=== PATIENT | male | born 1965 | race Caucasian/White ===

== ENCOUNTER 2019-04-17 16:53 | Emergency (ER) | payer OTHER ==
[2019-04-17] MEDS ORDERED: Morphine 4 MG/ML VIAL ONE ×2 (17:27→18:18)
[2019-04-17] MEDS ORDERED: Ondansetron PF 4 MG/2 ML Vial ONE (17:27)
[2019-04-17 17:59] LABS: #Lymphocytes 1.2 thou/uL (1.20-3.40); #Monocytes 0.4 thou/uL (0.11-0.59); #Neutrophils 11.4 thou/uL (1.40-6.50); %Basophils 0.3 % (0.0-1.0); %Lymphocytes 9.2 % (21.0-51.0); %Monocytes 3.3 % (0.0-10.0); %Neutrophils 87.2 % (42.0-75.0); Hemoglobin 14.1 g/dL (14.0-18.0); Mean Corpuscular Hemoglobin 31.7 pg (27.0-31.0); Mean Corpuscular Volume 93.5 fL (78.0-98.0); Mean Platelet Volume 7.1 fL (7.4-10.4); Platelet Count 270 thou/uL (130-400); RBC Distribution Width 12.3 % (11.5-14.5); Red Blood Cell (RBC) Count 4.45 mill/uL (4.70-6.10); White Blood Cell (WBC) Count 13.1 thou/uL (4.8-10.8)
[2019-04-17 18:06] LABS: ALT (SGPT) 35 U/L (8-55); AST (SGOT) 22 U/L (5-34); Albumin 4.5 g/dL (3.5-5.0); Alkaline Phosphatase 72 U/L (40-150); Anion Gap 16 mmol/L (10-20); BUN (Urea Nitrogen) 16 mg/dL (8.4-25.7); Bilirubin, Total 1.6 mg/dL (0.2-1.2); Calc. Creatinine Clearance 0 mL/min (70-130); Calcium 9.4 mg/dL (7.8-10.44); Carbon Dioxide 25 mmol/L (22-29); Estimated GFR-MDRD 41; Globulin 3.2 g/dL (2.4-3.5); Glucose 115 mg/dL (70-105); Protein, Total 7.7 g/dL (6.0-8.3)
[2019-04-17 18:10] LABS: Chloride 103 mmol/L (98-107); Potassium 4.2 mmol/L (3.5-5.1); Sodium 140 mmol/L (136-145)
--- NOTE | 2019-04-17 18:12 | CT ---
CT Stone Protocol: 04/17/2019 5:22 PM HISTORY: Right lower quadrant abdominal pain. History of kidney stones. COMPARISON: None. Procedure: Multiple contiguous axial images were obtained and a CT of the abdomen and pelvis without IV contrast . Coronal reformats were performed. FINDINGS: This examination is limited for the evaluation of solid organs and vascular structures due to the lac k of intravenous contrast. Lower Chest: Small hiatal hernia. Otherwise within normal limits. Abdomen: Liver: within normal limits. Bile Ducts: Normal caliber. Gallbladder: No calcified gallstones. Normal caliber wall. Pancreas: within normal limits. Spleen: within normal limits. Adrenals: within normal limits. Kidneys: Multiple bilateral nonobstructing renal calculi. The largest is seen on the right measuring 10 mm in size. The calcifications in the right kidney may be coalescing and developing into a staghorn calculus. No hydronephrosis on either side. Pelvis: Reproductive Organs: No pelvic masses. Ureters: There is a 3 mm calcification in the proximal right ureter with mild enlargement of the righ t ureter. A second 6 mm calcification is seen in the more proximal right ureter which is nonobstructing. Bladder: within normal limits. Bowel: Normal caliber. Normal appendix. Scattered diverticula in the colon. Mesenteric Lymph Nodes: No enlarged mesenteric lymph nodes. Peritoneum: No ascites or free air, no fluid collection. Vessels: Normal caliber aorta Retroperitoneum: within normal limits. Abdominal Wall: within normal limits. Bones: Degenerative changes in the spine. IMPRESSION: 1. Right ureteral calculi with mild hydroureter. No significant right hydronephrosis is seen. 2. Bilateral nonobstructing renal calculi. 3. Diverticulosis
[2019-04-17] MEDS ORDERED: Ketorolac Tromethamine 30 MG/ML VIAL ONE (18:18)
[2019-04-17 18:50] LABS: Bilirubin Negative (Negative); Blood, Urine Trace (Negative); Glucose, Urine (Dipstick) Negative (Negative); Leukocyte Negative (Negative); Nitrite Negative (Negative); Protein, Urine (Dipstick) Trace mg/dL (Neg-Trace); Urobilinogen 0.2 mg/dL (0.2-1.0)
[2019-04-17 18:56] LABS: Bacteria/HPF Rare-Few HPF (None Seen); Clarity Hazy (Clear); RBC/HPF 0-3 HPF (0-3); Squamous Epithelial None Seen HPF (0-3); WBC/HPF None Seen HPF (0-3)
[2019-04-17] MEDS ORDERED: HYDROcodone/Acetaminophen 10/325 mg Tablet ONE (19:11)
== END 2019-04-17 20:36 | disposition home or self-care (01) ==
LOC: SCSER 16:53
DX: N20.2 Calculus of kidney with calculus of ureter (principal); K21.9 Gastro-esophageal reflux disease without esophagitis
CPT/HCPCS: 36415; 74176; 80053; 81003; 81015; 85025; 96361; 96374; 96375; 96376; J1885; J2270; J2405

== ENCOUNTER 2019-05-05 09:21 | Outpatient (CLI) | payer OTHER ==
[2019-05-05 12:14] LABS: Hemoglobin 13.8 g/dL (14.0-18.0); Mean Corpuscular Hemoglobin 30.1 pg (27.0-31.0); Mean Corpuscular Volume 97.2 fL (78.0-98.0); Mean Platelet Volume 7.9 fL (7.4-10.4); Platelet Count 323 thou/uL (130-400); RBC Distribution Width 12.2 % (11.5-14.5); Red Blood Cell (RBC) Count 4.57 mill/uL (4.70-6.10)
[2019-05-05 12:20] LABS: PTT 26.6 SEC (22.9-36.1)
[2019-05-05 12:31] LABS: Bacteria/HPF None Seen HPF (None Seen); Bilirubin Negative (Negative); Blood, Urine Negative (Negative); Clarity Clear (Clear); Glucose, Urine (Dipstick) Normal (Negative); Leukocyte Negative Leu/uL (Negative); Nitrite Negative (Negative); Protein, Urine (Dipstick) Negative (Neg-Trace); RBC/HPF 0-3 HPF (0-3); Squamous Epithelial 0-3 HPF (0-3); Urobilinogen Normal mg/dL (Less than 2); WBC/HPF 0-3 HPF (0-3)
[2019-05-05 12:32] LABS: Anion Gap 13 mmol/L (10-20); BUN (Urea Nitrogen) 23 mg/dL (8.4-25.7); Calc. Creatinine Clearance 0 mL/min (70-130); Calcium 10.1 mg/dL (7.8-10.44); Carbon Dioxide 25 mmol/L (22-29); Chloride 106 mmol/L (98-107); Estimated GFR-MDRD 36; Glucose 90 mg/dL (70-105); Potassium 4.9 mmol/L (3.5-5.1); Sodium 139 mmol/L (136-145)
--- NOTE | 2019-05-05 17:22 | EKG ---
Test Reason : Blood Pressure : / mmHG Vent. Rate : 062 BPM Atrial Rate : 062 BPM P-R Int : 156 ms QRS Dur : 086 ms QT Int : 406 ms P-R-T Axes : 040 049 030 degrees QTc Int : 412 ms Normal sinus rhythm Normal ECG No previous ECGs available Confirmed by DR. Bertha MENDOZA ([id number]) on 05/05/2019 5:21:55 PM Referred By: LESTER Confirmed By:DR. Bertha MENDOZA
== END 2019-05-05 09:22 | disposition home or self-care (01) ==
LOC: LABBT 09:21
PROVIDERS: ATTEND Urology
DX: Z01.818 Encounter for other preprocedural examination (principal); N20.1 Calculus of ureter
CPT/HCPCS: 80048; 81001; 85027; 85610; 85730; 87086; 93005; 93010

== ENCOUNTER 2019-05-12 10:13 | Day surgery (SDC) | payer OTHER ==
[2019-05-05 11:05] VITALS: BMI 26.5
[2019-05-12] MEDS ORDERED: Fentanyl 100 MCG/2 ML VIAL ONE ×2 (11:11→13:43)
[2019-05-12] MEDS ORDERED: Levofloxacin 500 mg/D5W 100 ml Premix Bag ONE (11:18)
[2019-05-12] MEDS ORDERED: Lidocaine 2% Jelly 5 ML TUBE ONE (11:24)
[2019-05-12] MEDS ORDERED: Promethazine HCl 25 MG/ML VIAL ONE (13:10)
[2019-05-12] MEDS ORDERED: B & O ONE (13:15)
[2019-05-12] MEDS ORDERED: Meperidine HCl/PF 25 MG/ML VIAL ONE (13:24)
[2019-05-12] MEDS ORDERED: PROPOFOL 200 MG/20 ML VIAL ONE (13:50)
[2019-05-12] MEDS ORDERED: Lidocaine 1% PF 5 ML VIAL ONE (13:50)
[2019-05-12] MEDS ORDERED: Dexamethasone 20 MG/5 ML VIAL ONE (13:50)
[2019-05-12] MEDS ORDERED: Glycopyrrolate 0.2 MG/ML 5 ML SYRINGE ONE (13:50)
[2019-05-12] MEDS ORDERED: Rocuronium Bromide 10 MG/ML (10ML VIAL) ONE (13:50)
[2019-05-12] MEDS ORDERED: Ondansetron PF 4 MG/2 ML Vial ONE (13:50)
--- NOTE | 2019-05-12 16:25 | OP ---
DATE OF PROCEDURE: 05/12/2019 SERVICE: Urology. PREOPERATIVE DIAGNOSIS: Bilateral nephrolithiasis. POSTOPERATIVE DIAGNOSES: Bilateral nephrolithiasis and right ureteral stone. PROCEDURES PERFORMED: Right ureteroscopy, laser lithotripsy, basket extraction of stone, and placement of a 6 x 26 double-J stent. INDICATIONS FOR PROCEDURE: Mr. Victoria is a 53-year-old white male, who initially presented with right flank pain. He had mild renal insufficiency. He had 2 ureteral stones on the right with a 1 cm renal stone. He also has stones on the left. We had elected to treat the right side first since he has obstructing stones on the side. He thinks he may have passed one of the stones, but at the current time still has additional stones. Risks and benefits of ureteroscopy have been discussed, and he has agreed to proceed forward. DESCRIPTION OF PROCEDURE: After identification of armband and verification of consent, the patient was brought back to the operating room, where he underwent anesthesia with an endotracheal intubation. He was then placed in dorsal lithotomy position, and prepped and draped in usual sterile fashion. After appropriate time-out, a lubricated 22-Tristanian rigid cystoscope was introduced per urethra into the bladder. There was a very mild bulbar urethral stricture, which was navigated past. The prostate was not very obstructive. The right ureteral orifice was cannulated with a 0.035 Sensor wire up to the level of renal pelvis. The cystoscope was then removed, and a dual-lumen catheter was advanced over the Sensor wire up to the level of the stone in the ureter. An Amplatz Super Stiff wire was then placed through the second lumen of the dual-lumen catheter up to the level of renal pelvis. The dual-lumen was then removed. The sensor wire was then affixed to the drapes as a safety wire. An 11/13 x 46 cm ureteral access sheath was advanced up the right ureter to the level of the stone. The inner cannula and the Super Stiff wire were then removed, leaving the outer sheath in place. A flexible digital disposable ureteroscope was then passed up the ureteral access sheath to the level of the stone. Using a 273 micron ball-tip laser fiber, the stone was fragmented and the pieces removed using 1.9-Tristanian ZeroTip Nitinol basket. The inner cannula and Super Stiff wire were then placed back into the sheath and attempts to advance in forward were unsuccessful, therefore we opted to leave the sheath where it was. The ureteroscope was then passed up into the kidney, where the large upper pole renal calculus was seen. Actually, it was one solid stone rather than 2 separate stones, which was initially thought on CT scan. The stone was fragmented using the 273 ball-tip laser fiber and the dusting setting to completely fragment the stone. There were several large pieces at the end, which were basketed out using the same 1.9-Tristanian ZeroTip Nitinol basket. After extraction of all stone fragments, the only pieces left were 1 mm and submillimeter fragments. Satisfied that these should pass on their own. A full pyeloscopy was performed of all calyces, and no additional large stone fragments were identified. Pull-back ureteroscopy was employed. No additional stones were found in the ureter. There was a significant amount of edema and irritation at the site of stone impaction; therefore, I did elect to leave a stent. The cystoscope was backloaded over the Sensor wire back into the bladder, and a 6 x 26 double-J stent with no string attached was advanced up the Sensor wire up to the level of renal pelvis. The wire was then removed leaving a good curl in the kidney and a good curl in the bladder. The bladder was then emptied, and the cystoscope was removed. The patient was then awakened, taken to PACU for recovery in stable condition. COMPLICATIONS: None. ESTIMATED BLOOD LOSS: Minimal. RETAINED TUBES AND DRAINS: A 6 x 26 double-J stent on the right. SPECIMEN: Stone for stone analysis. DISPOSITION: The patient will be discharged home and follow up with me in approximately a week for cystoscopy and stent removal. Job ID: [id number]
[2019-05-17 09:10] LABS: CA Oxalate Monohydrate 85 % (.); CA Phosphate 15 % (.); Color Brown (.); Stone Weight 271.7 mg (.)
== END 2019-05-12 17:17 | disposition home or self-care (01) ==
LOC: SDC 10:13
PROVIDERS: ATTEND Urology
PROC: 0T768DZ Dilation of Right Ureter with Intraluminal Device, Via Natural or Artificial Opening Endoscopic (ICD-10-PCS; principal; 2019-05-12)
PROC: 0TF38ZZ Fragmentation in Right Kidney Pelvis, Via Natural or Artificial Opening Endoscopic (ICD-10-PCS; principal; 2019-05-12)
DX: N20.2 Calculus of kidney with calculus of ureter (principal); Z79.891 Long term (current) use of opiate analgesic; Z79.899 Other long term (current) drug therapy; Z88.0 Allergy status to penicillin
CPT/HCPCS: 74420; 82365; 88300; C1758; C1769; J1100; J1956; J2001; J2175; J2405; J2550; J2704; J3010

== ENCOUNTER 2019-07-12 12:07 | Outpatient (CLI) | payer OTHER ==
--- NOTE | 2019-07-12 13:05 | ULT ---
RENAL ULTRASOUND: DATE: 07/12/2019. COMPARISON: None. HISTORY: History of nephrolithiasis. TECHNIQUE: Multiplanar grayscale sonographic imaging of the kidneys and urinary bladder obtained. FINDINGS: The right kidney measures 10 cm in craniocaudal dimension and demonstrates a cortical thick ness of 1.4 cm. Left kidney measures 10.5 cm in craniocaudal dimension and demonstrates a cortical thickness of 1.5 c m. No hydronephrosis or solid renal mass lesion noted on either side. Three echogenic foci are noted within the left kidney suggesting left-sided renal stone disease, lynen uring up to 6 mm. The degree of renal stone disease on the left may be underestimated via ultrasound. Of note, there was a prominent stone within the right kidney on prior CT performed 04/17/2019. No stone is seen on this examination. This could be secondary to technical limitation or interval surgical removal. IMPRESSION: No discrete stone seen on the right. Findings suggest multiple subcentimeter intrarenal calculi on th e left. No hydronephrosis on either side. Transcribed Date/Time: 07/12/2019 1:10 PM
== END 2019-07-12 12:08 | disposition home or self-care (01) ==
LOC: BICULT 12:07
PROVIDERS: ATTEND Urology
DX: N20.0 Calculus of kidney (principal)
CPT/HCPCS: 76770

== ENCOUNTER 2019-08-21 13:50 | Outpatient (CLI) | payer OTHER ==
--- NOTE | 2019-08-21 14:26 | RAD ---
EXAM: XR Abdomen 1 View/KUB PROVIDED CLINICAL HISTORY: Nephrolithiasis. COMPARISON: CT abdomen on 04/17/2019. FINDINGS: Renal shadows are mostly obscured due to overlying bowel gas. There does appear to be a calcification overlying the midportion left renal shadow likely related to a calculus. The large calcifications overlying the midportion and superior pole right kidney on prior CT exam are not definitely delineate d on this study. Phleboliths overlie the pelvis. Bowel gas pattern is nonspecific. Osseous structures have a normal appearance. IMPRESSION: 1. Left nephrolithiasis. 2. Previously seen right renal calculi are not visualized on this exam.
== END 2019-08-21 13:51 | disposition home or self-care (01) ==
LOC: BICRAD 13:50
PROVIDERS: ATTEND Urology
DX: N20.0 Calculus of kidney (principal)
CPT/HCPCS: 74018

== ENCOUNTER 2019-08-30 17:01 | Outpatient (CLI) | payer OTHER ==
[2019-08-30 18:04] LABS: Bacteria/HPF None Seen HPF (None Seen); Bilirubin Negative (Negative); Blood, Urine Negative (Negative); Clarity Clear (Clear); Glucose, Urine (Dipstick) Normal (Negative); Hemoglobin 14.1 g/dL (14.0-18.0); Leukocyte Negative Leu/uL (Negative); Mean Corpuscular HGB CONC 32.4 g/dL (32.0-36.0); Mean Corpuscular Hemoglobin 31.5 pg (27.0-31.0); Mean Corpuscular Volume 97.2 fL (78.0-98.0); Mean Platelet Volume 8.3 fL (7.4-10.4); Nitrite Negative (Negative); Platelet Count 285 thou/uL (130-400); Protein, Urine (Dipstick) Negative (Neg-Trace); RBC Distribution Width 12.7 % (11.5-14.5); RBC/HPF 0-3 HPF (0-3); Red Blood Cell (RBC) Count 4.47 mill/uL (4.70-6.10); Squamous Epithelial 0-3 HPF (0-3); Urobilinogen Normal mg/dL (Less than 2); WBC/HPF 0-3 HPF (0-3); White Blood Cell (WBC) Count 6.2 thou/uL (4.8-10.8)
[2019-08-30 18:17] LABS: PTT 26.8 SEC (22.9-36.1)
[2019-08-30 18:21] LABS: Anion Gap 13 mmol/L (10-20); BUN (Urea Nitrogen) 15 mg/dL (8.4-25.7); Calc. Creatinine Clearance 0 mL/min (70-130); Calcium 9.7 mg/dL (7.8-10.44); Carbon Dioxide 29 mmol/L (22-29); Chloride 107 mmol/L (98-107); Estimated GFR-MDRD 58; Glucose 103 mg/dL (70-105); Potassium 4.3 mmol/L (3.5-5.1); Sodium 145 mmol/L (136-145)
--- NOTE | 2019-09-03 16:13 | EKG ---
Test Reason : Blood Pressure : / mmHG Vent. Rate : 062 BPM Atrial Rate : 062 BPM P-R Int : 148 ms QRS Dur : 092 ms QT Int : 406 ms P-R-T Axes : 023 039 023 degrees QTc Int : 412 ms Normal sinus rhythm Normal ECG When compared with ECG of 05-MAY-2019 11:46, No significant change was found Confirmed by DR. Gaurav DAVILA ([id number]) on 09/03/2019 4:13:38 PM Referred By: LESTER Confirmed By:DR. Gaurav DAVILA
== END 2019-08-30 17:02 | disposition home or self-care (01) ==
LOC: LABBT 17:01
PROVIDERS: ATTEND Urology
DX: Z01.818 Encounter for other preprocedural examination (principal); N20.0 Calculus of kidney
CPT/HCPCS: 80048; 81001; 85027; 85610; 85730; 87086; 93005; 93010

== ENCOUNTER 2019-09-07 05:53 | Day surgery (SDC) | payer OTHER ==
[2019-08-30 17:25] VITALS: BMI 25.8
[2019-09-07] MEDS ORDERED: Levofloxacin 500 mg/D5W 100 ml Premix Bag ONE (06:18)
[2019-09-07] MEDS ORDERED: Iothalamate Meglumine 60% 50 ML VIAL FS ONE (06:36)
[2019-09-07] MEDS ORDERED: Midazolam HCl 2 mg/2 ml Vial ONE (07:32)
[2019-09-07] MEDS ORDERED: Fentanyl 100 MCG/2 ML VIAL ONE (07:32)
--- NOTE | 2019-09-07 07:52 | RAD ---
KUB INDICATION: Preprocedure COMPARISON: 08/21/2019 FINDINGS: Bowel gas: Nonspecific but without overt appearance of obstruction. Lung bases: Clear. Additional findings: Left nephrolithiasis appears stable. Osseous structures: No acute osseous abnormality is demonstrated. IMPRESSION: 1. Stable left nephrolithiasis
[2019-09-07] MEDS ORDERED: diphenhydrAMINE 50 MG/ML VIAL ONE (09:42)
[2019-09-07] MEDS ORDERED: Lidocaine 1% PF 5 ML VIAL ONE (09:42)
[2019-09-07] MEDS ORDERED: Ondansetron PF 4 MG/2 ML Vial ONE (09:42)
[2019-09-07] MEDS ORDERED: PROPOFOL 200 MG/20 ML VIAL ONE (09:42)
[2019-09-07] MEDS ORDERED: Dexamethasone 20 MG/5 ML VIAL ONE (09:42)
--- NOTE | 2019-09-07 14:50 | OP ---
DATE OF PROCEDURE: 09/07/2019 SERVICE: Urology. PREOPERATIVE DIAGNOSIS: Left renal stones. POSTOPERATIVE DIAGNOSIS: Left renal stones. PROCEDURE PERFORMED: Left extracorporeal shockwave lithotripsy. INDICATION FOR PROCEDURE: Mr. Victoria is a 54-year-old white male, who presented initially for bilateral nephrolithiasis. He underwent ureteroscopy on the right, but due to discomfort with the stent and the procedure, he elected not to proceed with any further ureteroscopies. His stones were visible on plain film x-ray on the left side, but only one of them. The other two were not showing up radiographically on plain film. He elected to undergo shockwave lithotripsy for this one stone that was visible. Risks and benefits were discussed and he has agreed to proceed forward. DESCRIPTION OF PROCEDURE: After identification of armband and verification of consent, the patient was brought back to the operating room, where he underwent general anesthesia with an LMA. He was left in the supine position and positioned over the Lithotripter machine using x-ray. The stone was identified, but had some difficulty in aligning the stone due to bowel gas patterns present over the stone. The stone could faintly be seen between the bowel gas loops and positioned in the X, Y, and Z axis. Lithotripsy was then begun at 1 isobar at approximately 60 hertz and then slowly increased up to a total of 4 isobars. A total of 2500 shocks were delivered at this frequency with what appeared to be moderate to complete fragmentation of the stone. Upon completion, it was difficult to visualize that stone. There is questionable other stones remaining, but the patient does have additional stones within the kidney, which had already been known and I had already addressed with the patient that probably only one stone would be treated during shockwave session. As such, the surgical portion of the procedure was completed and the patient was awakened and taken to PACU for recovery in stable condition. COMPLICATIONS: None. ESTIMATED BLOOD LOSS: Minimal. RETAINED TUBES AND DRAINS: None. SPECIMENS: None. DISPOSITION: The patient will be discharged home and follow up with me in 1 week for followup with a KUB done prior. Job ID: [id number]
== END 2019-09-07 10:42 | disposition home or self-care (01) ==
LOC: SDC 05:53
PROVIDERS: ATTEND Urology
PROC: 0TF4XZZ Fragmentation in Left Kidney Pelvis, External Approach (ICD-10-PCS; principal; 2019-09-07)
DX: N20.0 Calculus of kidney (principal); Z88.0 Allergy status to penicillin
CPT/HCPCS: 74018; J1100; J1200; J1956; J2001; J2250; J2405; J2704; J3010

== ENCOUNTER 2019-09-20 13:49 | Outpatient (CLI) | payer OTHER ==
--- NOTE | 2019-09-20 16:27 | RAD ---
KUB: 09/20/19 HISTORY: Renal calculi. COMPARISON: 08/07/19 study. Bowel gas pattern is nonobstructive. Left sided renal calculi are again demonstrated somewhat obscure d by stool but felt to probably be stable. No definite ureteral calculus. Calcifications of the pelvi s appear to represent phleboliths. IMPRESSION: Stable left renal calculi. POS: [facility]
== END 2019-09-20 13:50 | disposition home or self-care (01) ==
LOC: BICRAD 13:49
PROVIDERS: ATTEND Urology
DX: N20.0 Calculus of kidney (principal)
CPT/HCPCS: 74018

== ENCOUNTER 2020-06-14 09:12 | Emergency (ER) | payer OTHER ==
[2020-06-14 09:39] LABS: #Lymphocytes 1.2 thou/uL (1.20-3.40); #Monocytes 0.6 thou/uL (0.11-0.59); #Neutrophils 10.7 thou/uL (1.40-6.50); %Lymphocytes 9.4 % (21.0-51.0); %Monocytes 4.6 % (0.0-10.0); Hemoglobin 14.3 g/dL (14.0-18.0); Mean Corpuscular HGB CONC 33.5 g/dL (32.0-36.0); Mean Corpuscular Hemoglobin 32.3 pg (27.0-31.0); Mean Corpuscular Volume 96.3 fL (78.0-98.0); Mean Platelet Volume 8.3 fL (7.4-10.4); Platelet Count 254 thou/uL (130-400); RBC Distribution Width 11.9 % (11.5-14.5); Red Blood Cell (RBC) Count 4.42 mill/uL (4.70-6.10); White Blood Cell (WBC) Count 12.5 thou/uL (4.8-10.8)
[2020-06-14 10:05] LABS: ALT (SGPT) 29 U/L (8-55); AST (SGOT) 21 U/L (5-34); Albumin 4.5 g/dL (3.5-5.0); Alkaline Phosphatase 86 U/L (40-110); Anion Gap 14 mmol/L (10-20); BUN (Urea Nitrogen) 15 mg/dL (8.4-25.7); Bilirubin, Total 2.6 mg/dL (0.2-1.2); Calc. Creatinine Clearance 0 mL/min (70-130); Calcium 9.6 mg/dL (7.8-10.44); Carbon Dioxide 28 mmol/L (22-29); Chloride 103 mmol/L (98-107); Estimated GFR-MDRD 40; Globulin 2.9 g/dL (2.4-3.5); Glucose 108 mg/dL (70-105); Potassium 3.9 mmol/L (3.5-5.1); Protein, Total 7.4 g/dL (6.0-8.3); Sodium 141 mmol/L (136-145)
[2020-06-14] MEDS ORDERED: Ondansetron PF 4 MG/2 ML Vial ONE (10:16)
[2020-06-14] MEDS ORDERED: Ketorolac Tromethamine 30 MG/ML VIAL ONE (10:42)
--- NOTE | 2020-06-14 10:46 | CT ---
ABDOMEN AND PELVIC CT SCAN WITHOUT IV CONTRAST: HISTORY: History of renal calculi. Left-sided flank pain. COMPARISON: 04/17/2019. FINDINGS: Liver appears unremarkable. There is some possible very tiny punctate foci within the gallbladder wh ich could represent very small gallstones. Consider followup gallbladder ultrasound on a nonemergent basis if that is a clinical concern. No evidence for gallbladder wall thickening or pericholecystic fluid. Pancreas, spleen, and adrenal glands are unremarkable. There are bilateral nonobstructing renal calc yolanda larger and more in number on the left side with moderate left-sided hydroureteral nephrosis secon ana maria to a 0.4 x 0.6 cm obstructing calculus in the distal left ureter. The urinary bladder appears u nremarkable. Occasional sigmoid colon diverticulosis without acute diverticulitis. Normal-appearing appendix. IMPRESSION: Mild to moderately obstructing distal left ureteral calculus. Multiple bilateral nonobstructing renal calculi. Probable small gallstones without evidence for acute cholecystitis. Small hiatal hernia. Other findings as above. POS: [facility]
--- NOTE | 2020-06-14 11:30 | RAD ---
EXAM: Single view of the chest HISTORY: Kidney stones and vomiting COMPARISON: None FINDINGS: Single view of the chest shows a normal sized cardiomediastinal silhouette. A calcified gra nuloma projects over the left mid thorax. No pleural effusion is seen. Degenerative changes are seen in the spine. IMPRESSION: No evidence of acute cardiopulmonary disease
[2020-06-14 12:45] LABS: Bacteria/HPF None Seen HPF (None Seen); Bilirubin Negative (Negative); Blood, Urine Trace (Negative); Clarity Clear (Clear); Glucose, Urine (Dipstick) Normal (Negative); Ketone, Urine 40 mg/dL (Negative); Leukocyte Negative Leu/uL (Negative); Nitrite Negative (Negative); Protein, Urine (Dipstick) Negative (Neg-Trace); RBC/HPF 0-3 HPF (0-3); Specific Gravity, Urine 1.011 (1.002-1.036); Squamous Epithelial None Seen HPF (0-3); Urobilinogen Normal mg/dL (Less than 2); WBC/HPF 0-3 HPF (0-3)
== END 2020-06-14 13:15 | disposition home or self-care (01) ==
LOC: ERS 09:12
DX: N13.2 Hydronephrosis with renal and ureteral calculous obstruction (principal); R00.1 Bradycardia, unspecified; K21.9 Gastro-esophageal reflux disease without esophagitis; Z87.442 Personal history of urinary calculi; Z79.899 Other long term (current) drug therapy
CPT/HCPCS: 36415; 71045; 74176; 80053; 81003; 81015; 84484; 85025; 93005; 96361; 96374; 96375; J1885; J2405

== ENCOUNTER 2023-08-10 12:30 | Outpatient (CLI) | payer OTHER | END 2023-08-10 12:31 | disposition home or self-care (01) | LOC: SCSRAD 12:30 | PROVIDERS: ATTEND Nurse Practitioner Family | DX: R06.02 Shortness of breath (principal) | CPT/HCPCS: 71046 ==